=== PATIENT | female | born 1995 | race Caucasian/White ===

== ENCOUNTER → 2019-06-05 | Outpatient (CLI) | payer OTHER, MEDICAID ==
[~2019-06-05] MED LIST: AFRIN15 ML NS; ALBUTEROL2.5 MG/31 INH; AZITHROMYCIN 2250 MG PO; CERTAGEN SOL1 BO1 NG; CIPRO500 MG PO; CITRATE OF MAG296 ML PO; CLARITIN10 MG PO; DELTASONE20 MG PO; DEPO-PROVER150 MG/M1; DEPO-PROVER400 MG/ML; FLEXERIL PO; HYDROCODONE-AP1 EAC6; HYDROCODONE-AP1 EAC6 PO; IBUPROFEN 400400 M1 PO; IBUPROFEN 400400 M2 PER TUBE; IBUPROFEN 600600 M1 PO; IBUPROFEN 800800 M1 PO; IBUPROFEN 800800 MG PO; LATUDA20 MG PO; MEDROL DOSPAK21 TA1 PO; MULTIVITAMINS1 EAC7; NAPROSYN500 MG; NOHOMEMEDICATIONS; NORCO 5-325 TA1 EACH PO; PREDNISONE 5 MG5 M1 PO; RIZATRIPTAN10 MG; RIZATRIPTAN10 MG PO; ROBITUSSIN DM118 ML PO; STRATTERA80 MG PO; TRAMADOL 50 MG50 MG PO; ULTRAM 50MG TAB50 MG PO; ULTRAM50 MG PO; VENLAFAXIN75 MG/1 T2 PO; ZOFRAN ODT4 MG PO; ZOFRAN4 MG PO
== END ==
LOC: M.MRI 11:01
DX: G43.709 Chronic migraine without aura, not intractable, without status migrainosus (principal)